=== PATIENT | male | born 1995 | race Caucasian/White ===

== ENCOUNTER 2017-09-28 13:55 | Emergency (ER) | payer SELFPAY | END 2017-09-28 16:40 | disposition home or self-care (01) | LOC: D.ER 13:55 | DX: S61.441A Puncture wound with foreign body of right hand, initial encounter (principal); W45.0XXA Nail entering through skin, initial encounter; Y93.89 Activity, other specified; Y92.89 Other specified places as the place of occurrence of the external cause ==